=== PATIENT | male | born 1960 | race Caucasian/White ===

== ENCOUNTER 2021-06-24 20:41 | Inpatient (IN) | payer OTHER ==
[~2021-06-24] VITALS: Ht 182.9 cm; Wt 93.9 kg
[2021-06-24 20:45] VITALS: BP 84/47
[2021-06-24] MEDS ORDERED: NOREPINEPHRINE 8 MG in SODIUM CHLORIDE 0.9% 242 ML IV PRN (21:00)
[2021-06-24] MEDS ORDERED: SODIUM CHLORIDE FLUSH 10ML SYR IVF ONE (21:00)
--- NOTE | 2021-06-24 21:31 | NUR ---
BIB BY [facility] FROM [facility] AFTER FOUND HIM OBTUNDED THIS MORNING. INITIAL FSBS 20. EMS TREATED BLOOD SUGAR WITH D50. ON ARRIVAL TO HOSPITAL PATIENT FOUND TO BE COVID POSITIVE. QUESTIONED PATIENT HAS BEEN WITH COUGH/N.V X 12 DAYS. HOWEVER HE HAS STILL BEEN TAKING HIS METFORMIN ABG OF 6.7 IT WAS THEORIZED HE ACCIDENTILLY OVERDOSED ON HIS METFORMIN D/T COVID DEHYDRATION. HE MENTAL STATUS DID NOT IMPROVE WITH FLUIDS/TREATMENT OF HYPOGLYCEMIA SO PATIENT WAS INTUBATED. PATIENT RECEIVED 4L OF NS AND 5 AMPS OF BICARB INITAL TEMP WAS 88 DEGREES, K 5.6, CR 11 CULTURED THEN TREATED WITH ZOSYN, VANCOMYCIN AND CASPOFUNGIN. TRANSFERRED HERE FOR CRITICAL CARE ON ARRIVAL OBTUNDED, NO GAG OR CORNEAL REFLEX NOTED. PUPILS 4 BUT WITH [place] RESPONSE ON ARRIVAL TRANSFERRED TO [facility], ECG OBTAINED, PLACED ON CARDIAC RESPONSE TEMP OF 93, 96, 97/66, ETCO2 OF 20, 93% ON 50% FIO2. REPEAT FSBS 334
[2021-06-24] MEDS: SODIUM BICARBONATE 8.4% 150 MEQ in DEXTROSE 5% 1,000 ML IV SCH (21:49)
[2021-06-24 22:00] VITALS: BP 110/58
[2021-06-24] MEDS: SODIUM CHLORIDE FLUSH 10ML SYR IVF SCH (22:00)
[2021-06-24] MEDS ORDERED: LIDOCAINE-MPF 1%, 2ML ENDO PRN (22:00)
[2021-06-24] MEDS ORDERED: GLUCAGON 1 MG IM PRN ×2 (22:00→23:30)
[2021-06-24] MEDS ORDERED: PHARMACY MAY ADJ FOR RENAL FX MC SCH (22:00)
[2021-06-24 22:17] LABS: PLATELET (DIC) 645 x10^3/uL (130-400)
[2021-06-24 22:19] LABS: MEAN CORPUSCULAR HEMOGLOBIN 32.1 pg (27.5-34.5); MEAN CORPUSCULAR HGB CONC 31.5 g/dL (33.2-36.2); MEAN PLATELET VOLUME 7.7 fL (7.4-10.4); PLATELET COUNT 643 x10^3/uL (130-400); RED BLOOD COUNT 4.25 x10^6/uL (4.38-5.82)
[2021-06-24 22:27] LABS: ACETONE, SERUM Moderate(40mg/dL) (Negative)
[2021-06-24] MEDS ORDERED: PROPOFOL 100 ML IV ONE (22:27)
[2021-06-24 22:35] LABS: ALANINE AMINOTRANSFERASE 47 U/L (12-78); ALBUMIN 1.9 g/dL (3.4-5.0); ANION GAP 36 mmol/L (5-15); BAND#(MANUAL) 2.05 x10^3/uL; BANDS%(MANUAL) 7 % (0-7); CALCIUM 8.5 mg/dL (8.5-10.1); CHLORIDE 82 mmol/L (98-107); CREATININE 9.57 mg/dL (0.7-1.3); LYMPH#(MANUAL) 1.17 x10^3/uL (1-3.4); LYMPHS% (MANUAL) 4 % (22-44); METAMYELOCYTES# (MANUAL) 0.29 x10^3/uL (0-0); METAMYELOCYTES% (MANUAL) 1 % (0-1); MONOS#(MANUAL) 1.47 x10^3/uL (0.3-2.7); MONOS% (MANUAL) 5 % (2-9); SEG#(MANUAL) 24.32 x10^3/uL (1.8-6.8); SEGS% (MANUAL) 83 % (42-75)
[2021-06-24 22:36] LABS: <PLATELET ESTIMATE> INCREASED; <PLT MORPHOLOGY> NORMAL PLT MORPH; <RBC MORPHOLOGY> NORMAL
[2021-06-24 22:45] LABS: ALKALINE PHOSPHATASE 116 U/L (45-117); BILIRUBIN,TOTAL 0.4 mg/dL (0.2-1.0); FREE T4 (FREE THYROXINE) 1.12 ng/dL (0.76-1.46); TOTAL PROTEIN 6.1 g/dL (6.4-8.2); TRIGLYCERIDES 181 mg/dL (50-200)
[2021-06-24 22:52] LABS: TROPONIN I 0.232 ng/mL (0.000-0.045)
[2021-06-24 22:57] LABS: FIBRINOGEN 445 mg/dL (200-340); PROTIME 14.2 Seconds (9.6-11.5); PTT 64 Seconds (25-31)
[2021-06-24 23:00] VITALS: BP_SYST 89; BP_SYST 99; BP_DIAS 51; BP_DIAS 52
[2021-06-24 23:15] LABS: D-DIMER (DIC) > 35.00 ug/mlFEU (0.00-0.52)
[2021-06-24] MEDS ORDERED: PHARMACY MAY ADJ FOR RENAL FX MC PRN (23:30)
[2021-06-24] MEDS ORDERED: DEXTROSE 4 GM TAB.CHEW PO PRN (23:30)
[2021-06-24] MEDS ORDERED: CALCIUM CHLORIDE 10%, 10ML SYR IVPush ONE (23:30)
[2021-06-24] MEDS ORDERED: DEXTROSE 50%, 50ML SYRINGE IVPush PRN (23:30)
[2021-06-24] MEDS ORDERED: ACETAMINOPHEN 650 MG SUPP PR PRN (23:30)
[2021-06-24 23:39] LABS: SALICYLATE LEVEL 2.5 mg/dL (2.8-20.0)
[2021-06-25] VITALS (70 sets, daily range): BP systolic 85–165; BP diastolic 35–107
[2021-06-25] MEDS: SODIUM BICARBONATE 8.4% 150 MEQ in DEXTROSE 5% 1,000 ML IV SCH ×7 (00:17→18:50)
[2021-06-25] MEDS: NOREPINEPHRINE 8 MG in SODIUM CHLORIDE 0.9% 242 ML IV PRN ×2 (00:18→00:40)
[2021-06-25] MEDS ORDERED: DEXAMETHASONE 4 MG/ML, 1ML ONE (02:47)
[2021-06-25] MEDS: DEXAMETHASONE 4 MG/ML, 1ML IVPush SCH (02:51)
[2021-06-25] MEDS: PIPERACILLIN/TAZO 3.375 GM in DEXTROSE 5% 50 ML IV SCH ×4 (02:58→20:32)
[2021-06-25] MEDS: NOREPINEPHRINE 32 MG in SODIUM CHLORIDE 0.9% 218 ML IV PRN ×3 (03:13→15:01)
[2021-06-25] MEDS ORDERED: ALBUMIN HUMAN 25% 100 ML IV ONE (03:30)
[2021-06-25] MEDS: VASOPRESSIN 20 UNIT in SODIUM CHLORIDE 0.9% 99 ML IV PRN ×3 (03:32→15:00)
[2021-06-25] MEDS: PROPOFOL 100 ML IV PRN ×8 (03:50→22:45)
[2021-06-25] MEDS ORDERED: FENTANYL PF 100 MCG/2ML ONE ×3 (04:15→05:24)
[2021-06-25] MEDS: FENTANYL PF 100 MCG/2ML IVPush PRN ×3 (04:17→05:38)
[2021-06-25] MEDS ORDERED: SIMV20TA19 PO (04:55)
[2021-06-25] MEDS ORDERED: GLIM4TAB8 PO (04:58)
[2021-06-25] MEDS ORDERED: METF-688 PO (04:59)
[2021-06-25] MEDS ORDERED: LISI20TA21 PO (05:00)
[2021-06-25] MEDS ORDERED: THYR25PO PO (05:02)
[2021-06-25] MEDS ORDERED: NAPR500T8 PO (05:06)
[2021-06-25] MEDS ORDERED: ASPI81TA45 PO (05:06)
[2021-06-25] MEDS ORDERED: MIDAZOLAM 1 MG/ML, 2ML IVPush ONE (05:30)
[2021-06-25] MEDS ORDERED: MIDAZOLAM 1 MG/ML, 2ML ONE (05:33)
[2021-06-25] MEDS ORDERED: MIDAZOLAM HCL 50 MG in SODIUM CHLORIDE 0.9% 40 ML IV PRN (06:00)
[2021-06-25] MEDS: MIDAZOLAM HCL 50 MG in SODIUM CHLORIDE 0.9% 40 ML IV PRN ×3 (06:28→22:55)
[2021-06-25] MEDS: PANTOPRAZOLE 40 MG IV IVPush SCH ×2 (06:40→17:39)
[2021-06-25] MEDS ORDERED: PANTOPRAZOLE 40 MG IV ONE ×2 (06:40→17:31)
[2021-06-25] MEDS ORDERED: PROPOFOL 100 ML IV ONE ×6 (06:40→22:40)
[2021-06-25 07:02] LABS: MEAN CORPUSCULAR HEMOGLOBIN 32.1 pg (27.5-34.5); MEAN CORPUSCULAR HGB CONC 33.6 g/dL (33.2-36.2); MEAN PLATELET VOLUME 7.7 fL (7.4-10.4); PLATELET COUNT 406 x10^3/uL (130-400); RED BLOOD COUNT 3.63 x10^6/uL (4.38-5.82); RED CELL DISTRIBUTION WIDTH 12.4 % (9.4-14.8)
[2021-06-25 07:17] LABS: ALANINE AMINOTRANSFERASE 55 U/L (12-78); ALBUMIN 2.1 g/dL (3.4-5.0); ANION GAP 29 mmol/L (5-15); CALCIUM 7.8 mg/dL (8.5-10.1); CHLORIDE 90 mmol/L (98-107)
[2021-06-25 07:22] LABS: ALKALINE PHOSPHATASE 84 U/L (45-117); BILIRUBIN,TOTAL 0.6 mg/dL (0.2-1.0); TOTAL PROTEIN 5.4 g/dL (6.4-8.2)
[2021-06-25 07:28] LABS: INTERNATIONAL NORMALIZED RATIO 1.38 (0.93-1.1); PROTHROMBIN TIME 14.5 Seconds (9.6-11.5)
[2021-06-25 07:30] LABS: TROPONIN I 0.276 ng/mL (0.000-0.045)
[2021-06-25] MEDS ORDERED: INSULIN GLARGINE 100 UNITS/ML, PEN SQ-INSULIN SCH ×2 (08:00→20:00)
[2021-06-25 08:11] LABS: BAND#(MANUAL) 0.67 x10^3/uL; BANDS%(MANUAL) 2 % (0-7); LYMPH#(MANUAL) 0.67 x10^3/uL (1-3.4); LYMPHS% (MANUAL) 2 % (22-44); METAMYELOCYTES# (MANUAL) 0.34 x10^3/uL (0-0); METAMYELOCYTES% (MANUAL) 1 % (0-1); MONOS#(MANUAL) 1.34 x10^3/uL (0.3-2.7); MONOS% (MANUAL) 4 % (2-9); SEG#(MANUAL) 30.58 x10^3/uL (1.8-6.8); SEGS% (MANUAL) 91 % (42-75)
[2021-06-25 08:12] LABS: <PLATELET ESTIMATE> INCREASED; <PLT MORPHOLOGY> NORMAL PLT MORPH; POLYCHROMASIA 1+; SMUDGE CELLS 1+
[2021-06-25] MEDS ORDERED: INSULIN LISPRO SINGLE DOSE, ER SQ-INSULIN ONE (08:53)
[2021-06-25] MEDS: INSULIN LISPRO 100 UNITS/ML, PEN SQ-INSULIN SCH ×4 (08:55→21:51)
[2021-06-25] MEDS: SODIUM CHLORIDE FLUSH 10ML SYR IVF SCH ×4 (09:00→21:45)
[2021-06-25] MEDS ORDERED: FAMOTIDINE 20 MG/2 ML IVPush SCH (09:00)
[2021-06-25 13:16] LABS: ANION GAP 38 mmol/L (5-15); CALCIUM 7.2 mg/dL (8.5-10.1); CHLORIDE 85 mmol/L (98-107); CREATININE 6.28 mg/dL (0.7-1.3)
[2021-06-25] MEDS: ALBUMIN HUMAN 25% 100 ML IV PRN (17:38)
--- NOTE | 2021-06-25 19:05 | NUR ---
RECEIVED REPORT FROM KAYCE REDMOND. PT. CURRENTLY RECEIVING DIALYSIS.
[2021-06-26] VITALS: BP 129/66
[2021-06-26 00:15] VITALS: BP 123/59
[2021-06-26 00:30] VITALS: BP 127/65
[2021-06-26 00:45] VITALS: BP 123/62
[2021-06-26 01:00] VITALS: BP 108/59
[2021-06-26] MEDS ORDERED: HEPARIN 5,000 UNITS/ML, 1ML IV ONE (01:00)
[2021-06-26 01:15] VITALS: BP 89/49
[2021-06-26] MEDS: INSULIN LISPRO 100 UNITS/ML, PEN SQ-INSULIN SCH ×5 (01:45→19:45)
[2021-06-26] MEDS: PIPERACILLIN/TAZO 3.375 GM in DEXTROSE 5% 50 ML IV SCH ×4 (01:54→14:32)
[2021-06-26] MEDS: HEPARIN 25,000 UNITS/250ML PMX 250 ML IV PRN (02:22)
[2021-06-26] MEDS: PROPOFOL 100 ML IV PRN ×5 (02:40→20:26)
[2021-06-26] MEDS: MIDAZOLAM HCL 50 MG in SODIUM CHLORIDE 0.9% 40 ML IV PRN ×2 (04:15→10:22)
[2021-06-26] MEDS: NOREPINEPHRINE 32 MG in SODIUM CHLORIDE 0.9% 218 ML IV PRN ×3 (04:16→20:28)
[2021-06-26 05:12] LABS: BASOPHILS % (AUTO) 0 % (0-1); EOSINOPHILS % (AUTO) 0 % (1-7); LYMPHOCYTES % (AUTO) 10 % (22-44); MEAN CORPUSCULAR HEMOGLOBIN 31.7 pg (27.5-34.5); MEAN CORPUSCULAR HGB CONC 34.8 g/dL (33.2-36.2); MONOCYTES % (AUTO) 5 % (2-9); NEUTROPHILS % (AUTO) 86 % (42-75); PLATELET COUNT 257 x10^3/uL (130-400); RED BLOOD COUNT 3.14 x10^6/uL (4.38-5.82); RED CELL DISTRIBUTION WIDTH 12.2 % (9.4-14.8)
[2021-06-26 05:23] LABS: ALANINE AMINOTRANSFERASE 44 U/L (12-78); ANION GAP 13 mmol/L (5-15); CALCIUM 6.7 mg/dL (8.5-10.1); CHLORIDE 90 mmol/L (98-107)
[2021-06-26 05:27] LABS: ALKALINE PHOSPHATASE 64 U/L (45-117); BILIRUBIN,TOTAL 0.8 mg/dL (0.2-1.0); TOTAL PROTEIN 4.7 g/dL (6.4-8.2)
[2021-06-26] MEDS: PANTOPRAZOLE 40 MG IV IVPush SCH ×2 (06:01→17:39)
[2021-06-26] MEDS: SODIUM BICARBONATE 8.4% 150 MEQ in DEXTROSE 5% 1,000 ML IV SCH (06:22)
[2021-06-26] MEDS ORDERED: REMDESIVIR 200 MG in SODIUM CHLORIDE 0.9% 250 ML IVPB ONE (08:00)
[2021-06-26] MEDS: ASCORBIC ACID 500 MG TABLET PO SCH ×2 (08:30→17:36)
[2021-06-26] MEDS ORDERED: AZITHROMYCIN 500 MG TABLET ONE (08:37)
[2021-06-26] MEDS: SODIUM CHLORIDE FLUSH 10ML SYR IVF SCH ×4 (09:00→20:23)
[2021-06-26] MEDS: INSULIN GLARGINE 100 UNITS/ML, PEN SQ-INSULIN SCH ×2 (10:00→20:20)
[2021-06-26] MEDS: DEXAMETHASONE 4 MG/ML, 1ML IVPush SCH (10:17)
[2021-06-26] MEDS: LEVOTHYROXINE 100 MCG INJ IVPush SCH (10:18)
[2021-06-26] MEDS: THIAMINE 100MG TABLET PO SCH (10:19)
[2021-06-26] MEDS: CHOLECALCIFEROL 5,000u TAB PO SCH (10:19)
[2021-06-26] MEDS: ZINC SULFATE 220 MG CAPSULE PO SCH (10:19)
[2021-06-26] MEDS ORDERED: PHENYLEPHRINE 50 MG in SODIUM CHLORIDE 0.9% 245 ML IV PRN (15:30)
[2021-06-26] MEDS ORDERED: NOREPINEPHRINE 1 MG/ML, 4ML ONE (18:38)
[2021-06-26] MEDS: PIPERACILLIN/TAZO 2.25 GM in DEXTROSE 5% 50 ML IV SCH (20:18)
[2021-06-26] MEDS: HEPARIN 5,000 UNITS/ML, 1ML IV PRN (21:27)
[2021-06-27] MEDS: INSULIN LISPRO 100 UNITS/ML, PEN SQ-INSULIN SCH ×7 (00:20→23:38)
[2021-06-27] MEDS: MIDAZOLAM HCL 50 MG in SODIUM CHLORIDE 0.9% 40 ML IV PRN ×2 (00:22→09:08)
[2021-06-27] MEDS: PROPOFOL 100 ML IV PRN ×2 (00:47→05:33)
[2021-06-27] MEDS: PIPERACILLIN/TAZO 2.25 GM in DEXTROSE 5% 50 ML IV SCH ×3 (00:52→14:19)
[2021-06-27] MEDS: NOREPINEPHRINE 32 MG in SODIUM CHLORIDE 0.9% 218 ML IV PRN ×2 (00:53→14:15)
[2021-06-27] MEDS: PHENYLEPHRINE 100 MG in SODIUM CHLORIDE 0.9% 240 ML IV PRN ×5 (00:53→23:54)
[2021-06-27] MEDS: HEPARIN 25,000 UNITS/250ML PMX 250 ML IV PRN ×2 (02:46→23:46)
[2021-06-27 04:07] LABS: MEAN CORPUSCULAR HEMOGLOBIN 33.5 pg (27.5-34.5); MEAN CORPUSCULAR HGB CONC 36.2 g/dL (33.2-36.2); MEAN PLATELET VOLUME 7.2 fL (7.4-10.4); PLATELET COUNT 248 x10^3/uL (130-400); RED BLOOD COUNT 3.31 x10^6/uL (4.38-5.82); RED CELL DISTRIBUTION WIDTH 12.3 % (9.4-14.8)
[2021-06-27 04:20] LABS: ALANINE AMINOTRANSFERASE 48 U/L (12-78); ALBUMIN 1.7 g/dL (3.4-5.0); ANION GAP 22 mmol/L (5-15); CHLORIDE 93 mmol/L (98-107); CREATININE 4.84 mg/dL (0.7-1.3)
[2021-06-27 04:23] LABS: ALKALINE PHOSPHATASE 94 U/L (45-117); BILIRUBIN,TOTAL 0.8 mg/dL (0.2-1.0); TOTAL PROTEIN 4.8 g/dL (6.4-8.2); TRIGLYCERIDES 548 mg/dL (50-200)
[2021-06-27 04:31] LABS: CALCIUM 5.8 mg/dL (8.5-10.1)
[2021-06-27 04:40] LABS: <RBC MORPHOLOGY> NORMAL; BAND#(MANUAL) 3.09 x10^3/uL; BANDS%(MANUAL) 11 % (0-7); LYMPH#(MANUAL) 1.69 x10^3/uL (1-3.4); LYMPHS% (MANUAL) 6 % (22-44); MONOS#(MANUAL) 1.69 x10^3/uL (0.3-2.7); MONOS% (MANUAL) 6 % (2-9); SEG#(MANUAL) 21.64 x10^3/uL (1.8-6.8); SEGS% (MANUAL) 77 % (42-75)
[2021-06-27 04:41] LABS: <PLATELET ESTIMATE> ADEQUATE; <PLT MORPHOLOGY> NORMAL PLT MORPH; PMNS WITH VACUOLES 1+; SMUDGE CELLS 1+
[2021-06-27] MEDS: PANTOPRAZOLE 40 MG IV IVPush SCH ×2 (05:32→17:52)
[2021-06-27] MEDS: DEXMEDETOMIDINE 200 MCG in SODIUM CHLORIDE 0.9% 48 ML IV PRN ×3 (06:42→16:30)
[2021-06-27] MEDS ORDERED: REMDESIVIR 100 MG in SODIUM CHLORIDE 0.9% 250 ML IVPB SCH (08:00)
[2021-06-27] MEDS: THIAMINE 100MG TABLET PO SCH (08:29)
[2021-06-27] MEDS: ASCORBIC ACID 500 MG TABLET PO SCH ×2 (08:29→16:29)
[2021-06-27] MEDS: SODIUM CHLORIDE FLUSH 10ML SYR IVF SCH ×4 (08:29→19:54)
[2021-06-27] MEDS: CHOLECALCIFEROL 5,000u TAB PO SCH (08:30)
[2021-06-27] MEDS: DEXAMETHASONE 4 MG/ML, 1ML IVPush SCH (08:34)
[2021-06-27] MEDS: ZINC SULFATE 220 MG CAPSULE PO SCH (08:34)
[2021-06-27] MEDS: LEVOTHYROXINE 100 MCG INJ IVPush SCH (08:34)
[2021-06-27] MEDS: INSULIN GLARGINE 100 UNITS/ML, PEN SQ-INSULIN SCH ×2 (08:48→19:55)
[2021-06-27] MEDS: REMDESIVIR 100 MG in SODIUM CHLORIDE 0.9% 250 ML IVPB SCH (12:36)
[2021-06-27] MEDS ORDERED: CALCIUM GLUCONATE 0.46MEQ/1ML IVPush ONE (13:30)
[2021-06-27] MEDS ORDERED: CALCIUM GLUCONATE 4.6 MEQ in SODIUM CHLORIDE 0.9% 100 ML IV ONE (13:30)
[2021-06-27] MEDS ORDERED: CEFEPIME 1 GM in DEXTROSE 5% 50 ML IV SCH (15:30)
[2021-06-27] MEDS ORDERED: VANCOMYCIN PER PHARMACY MC PRN (15:30)
[2021-06-27] MEDS ORDERED: VANCOMYCIN 2,000 MG in SODIUM CHLORIDE 0.9% 500 ML IV ONE (16:30)
[2021-06-27] MEDS ORDERED: PHARMACOKINETIC CONSULTATION MC ONE (16:30)
[2021-06-27] MEDS ORDERED: PHARMACOKINETIC MONITORING MC PRN (16:30)
[2021-06-27] MEDS: CEFEPIME 1 GM in DEXTROSE 5% 50 ML IV SCH (19:51)
[2021-06-28] MEDS: INSULIN LISPRO 100 UNITS/ML, PEN SQ-INSULIN SCH ×5 (04:07→23:26)
[2021-06-28 04:22] LABS: ALANINE AMINOTRANSFERASE 43 U/L (12-78); ALBUMIN 1.6 g/dL (3.4-5.0); ANION GAP 15 mmol/L (5-15); CALCIUM 6.1 mg/dL (8.5-10.1); CHLORIDE 97 mmol/L (98-107); CREATININE 4.53 mg/dL (0.7-1.3)
[2021-06-28 04:25] LABS: ALKALINE PHOSPHATASE 255 U/L (45-117); BILIRUBIN,TOTAL 0.8 mg/dL (0.2-1.0); TOTAL PROTEIN 5.1 g/dL (6.4-8.2)
[2021-06-28 04:27] LABS: MEAN CORPUSCULAR HEMOGLOBIN 31.7 pg (27.5-34.5); MEAN CORPUSCULAR HGB CONC 34.1 g/dL (33.2-36.2); MEAN PLATELET VOLUME 7.3 fL (7.4-10.4); PLATELET COUNT 237 x10^3/uL (130-400); RED BLOOD COUNT 3.64 x10^6/uL (4.38-5.82); RED CELL DISTRIBUTION WIDTH 12.9 % (9.4-14.8)
[2021-06-28] MEDS: HEPARIN 5,000 UNITS/ML, 1ML IV PRN (04:47)
[2021-06-28] MEDS: PANTOPRAZOLE 40 MG IV IVPush SCH ×2 (04:51→16:25)
[2021-06-28] MEDS: FENTANYL PF 100 MCG/2ML IVPush PRN (04:52)
[2021-06-28] MEDS: DEXMEDETOMIDINE 200 MCG in SODIUM CHLORIDE 0.9% 48 ML IV PRN ×3 (05:04→21:49)
[2021-06-28] MEDS: PHENYLEPHRINE 100 MG in SODIUM CHLORIDE 0.9% 240 ML IV PRN ×4 (05:04→21:49)
[2021-06-28 05:43] LABS: BAND#(MANUAL) 0.24 x10^3/uL; BANDS%(MANUAL) 1 % (0-7); LYMPH#(MANUAL) 3.07 x10^3/uL (1-3.4); LYMPHS% (MANUAL) 13 % (22-44); MONOS#(MANUAL) 0.24 x10^3/uL (0.3-2.7); MONOS% (MANUAL) 1 % (2-9); SEG#(MANUAL) 20.06 x10^3/uL (1.8-6.8); SEGS% (MANUAL) 85 % (42-75)
[2021-06-28 05:44] LABS: <PLATELET ESTIMATE> ADEQUATE; <PLT MORPHOLOGY> NORMAL PLT MORPH; <RBC MORPHOLOGY> NORMAL
[2021-06-28] MEDS: MIDAZOLAM HCL 50 MG in SODIUM CHLORIDE 0.9% 40 ML IV PRN (06:36)
[2021-06-28] MEDS: INSULIN GLARGINE 100 UNITS/ML, PEN SQ-INSULIN SCH ×2 (08:00→23:27)
[2021-06-28] MEDS: ARTIFICIAL TEARS OINT 3.5 GM EACHEYE SCH ×3 (09:00→21:49)
[2021-06-28] MEDS: THIAMINE 100MG TABLET PO SCH (09:01)
[2021-06-28] MEDS: SODIUM CHLORIDE FLUSH 10ML SYR IVF SCH ×4 (09:01→20:08)
[2021-06-28] MEDS: ASCORBIC ACID 500 MG TABLET PO SCH ×2 (09:01→16:25)
[2021-06-28] MEDS: CHOLECALCIFEROL 5,000u TAB PO SCH (09:02)
[2021-06-28] MEDS: LEVOTHYROXINE 100 MCG INJ IVPush SCH (09:02)
[2021-06-28] MEDS: DEXAMETHASONE 4 MG/ML, 1ML IVPush SCH (09:02)
[2021-06-28] MEDS: ZINC SULFATE 220 MG CAPSULE PO SCH (09:02)
[2021-06-28] MEDS: NOREPINEPHRINE 32 MG in SODIUM CHLORIDE 0.9% 218 ML IV PRN (09:04)
[2021-06-28] MEDS: REMDESIVIR 100 MG in SODIUM CHLORIDE 0.9% 250 ML IVPB SCH (11:54)
[2021-06-28] MEDS: CEFEPIME 1 GM in DEXTROSE 5% 50 ML IV SCH (20:08)
[2021-06-28] MEDS: HEPARIN 25,000 UNITS/250ML PMX 250 ML IV PRN (21:08)
[2021-06-29] MEDS: DEXMEDETOMIDINE 1,000 MCG in SODIUM CHLORIDE 0.9% 240 ML IV PRN ×2 (00:26→11:51)
[2021-06-29] MEDS: MIDAZOLAM HCL 50 MG in SODIUM CHLORIDE 0.9% 40 ML IV PRN (01:34)
[2021-06-29] MEDS: FENTANYL PF 100 MCG/2ML IVPush PRN ×2 (02:06→05:58)
[2021-06-29] MEDS: PHENYLEPHRINE 100 MG in SODIUM CHLORIDE 0.9% 240 ML IV PRN ×6 (02:47→23:31)
[2021-06-29] MEDS: ARTIFICIAL TEARS OINT 3.5 GM EACHEYE SCH ×4 (04:26→22:21)
[2021-06-29] MEDS: INSULIN LISPRO 100 UNITS/ML, PEN SQ-INSULIN SCH ×4 (04:32→22:26)
[2021-06-29 04:52] LABS: MEAN CORPUSCULAR HEMOGLOBIN 31.4 pg (27.5-34.5); MEAN CORPUSCULAR HGB CONC 33.9 g/dL (33.2-36.2); MEAN PLATELET VOLUME 7.2 fL (7.4-10.4); PLATELET COUNT 224 x10^3/uL (130-400); RED BLOOD COUNT 3.91 x10^6/uL (4.38-5.82)
[2021-06-29 05:06] LABS: CHLORIDE 98 mmol/L (98-107)
[2021-06-29 05:17] LABS: ALANINE AMINOTRANSFERASE 39 U/L (12-78); ALBUMIN 1.4 g/dL (3.4-5.0); ALKALINE PHOSPHATASE 344 U/L (45-117); ANION GAP 16 mmol/L (5-15); BILIRUBIN,TOTAL 0.7 mg/dL (0.2-1.0); CREATININE 5.42 mg/dL (0.7-1.3); TOTAL PROTEIN 5.4 g/dL (6.4-8.2); VANCOMYCIN,RANDOM 22.3 mcg/mL
[2021-06-29 05:18] LABS: CALCIUM 5.9 mg/dL (8.5-10.1)
[2021-06-29 05:47] LABS: BANDS%(MANUAL) 5 % (0-7); LYMPHS% (MANUAL) 4 % (22-44); MONOS% (MANUAL) 2 % (2-9); SEGS% (MANUAL) 89 % (42-75)
[2021-06-29 05:48] LABS: <PLATELET ESTIMATE> ADEQUATE; <PLT MORPHOLOGY> NORMAL PLT MORPH; <RBC MORPHOLOGY> NORMAL
[2021-06-29] MEDS: PANTOPRAZOLE 40 MG IV IVPush SCH ×2 (05:58→17:47)
[2021-06-29] MEDS: INSULIN GLARGINE 100 UNITS/ML, PEN SQ-INSULIN SCH ×2 (07:36→22:26)
[2021-06-29] MEDS: DEXAMETHASONE 4 MG/ML, 1ML IVPush SCH (08:46)
[2021-06-29] MEDS: THIAMINE 100MG TABLET PO SCH (08:46)
[2021-06-29] MEDS: CHOLECALCIFEROL 5,000u TAB PO SCH (08:47)
[2021-06-29] MEDS: ASCORBIC ACID 500 MG TABLET PO SCH ×2 (08:47→17:47)
[2021-06-29] MEDS: LEVOTHYROXINE 100 MCG INJ IVPush SCH (08:47)
[2021-06-29] MEDS: ZINC SULFATE 220 MG CAPSULE PO SCH (08:47)
[2021-06-29] MEDS: SODIUM CHLORIDE FLUSH 10ML SYR IVF SCH ×4 (08:52→19:58)
[2021-06-29] MEDS: MEROPENEM 1 GM in SODIUM CHLORIDE 0.9% 100 ML IV SCH ×2 (10:27→22:21)
[2021-06-29] MEDS ORDERED: CALCIUM GLUCONATE 4.6 MEQ/10 ML IVPush ONE (10:30)
[2021-06-29] MEDS: FENTANYL PF 1,000 MCG in SODIUM CHLORIDE 0.9% 80 ML IV PRN (11:40)
[2021-06-29] MEDS ORDERED: CALCIUM GLUCONATE 4.6 MEQ in SODIUM CHLORIDE 0.9% 100 ML IV ONE (12:00)
[2021-06-29] MEDS: REMDESIVIR 100 MG in SODIUM CHLORIDE 0.9% 250 ML IVPB SCH (12:06)
[2021-06-29] MEDS: HEPARIN 25,000 UNITS/250ML PMX 250 ML IV PRN (16:18)
[2021-06-29] MEDS ORDERED: VANCOMYCIN 1,800 MG in SODIUM CHLORIDE 0.9% 250 ML IV ONE (18:00)
[2021-06-30 04:24] LABS: MEAN CORPUSCULAR HEMOGLOBIN 31.6 pg (27.5-34.5); MEAN PLATELET VOLUME 7.4 fL (7.4-10.4); PLATELET COUNT 155 x10^3/uL (130-400); RED BLOOD COUNT 3.82 x10^6/uL (4.38-5.82); RED CELL DISTRIBUTION WIDTH 13.1 % (9.4-14.8)
[2021-06-30 04:30] LABS: ALANINE AMINOTRANSFERASE 37 U/L (12-78); ALBUMIN 1.1 g/dL (3.4-5.0); ANION GAP 12 mmol/L (5-15); CHLORIDE 101 mmol/L (98-107); CREATININE 4.59 mg/dL (0.7-1.3)
[2021-06-30 04:33] LABS: ALKALINE PHOSPHATASE 360 U/L (45-117); BILIRUBIN,TOTAL 0.6 mg/dL (0.2-1.0); TOTAL PROTEIN 5.1 g/dL (6.4-8.2); TRIGLYCERIDES 107 mg/dL (50-200)
[2021-06-30 05:21] LABS: BAND#(MANUAL) 2.46 x10^3/uL; BANDS%(MANUAL) 10 % (0-7); LYMPH#(MANUAL) 0.25 x10^3/uL (1-3.4); LYMPHS% (MANUAL) 1 % (22-44); MONOS#(MANUAL) 0.49 x10^3/uL (0.3-2.7); MONOS% (MANUAL) 2 % (2-9); SEGS% (MANUAL) 87 % (42-75)
[2021-06-30 05:22] LABS: <PLATELET ESTIMATE> ADEQUATE; <PLT MORPHOLOGY> NORMAL PLT MORPH; <RBC MORPHOLOGY> NORMAL
[2021-06-30] MEDS: PHENYLEPHRINE 100 MG in SODIUM CHLORIDE 0.9% 240 ML IV PRN ×3 (05:23→21:49)
[2021-06-30] MEDS: INSULIN LISPRO 100 UNITS/ML, PEN SQ-INSULIN SCH ×4 (05:24→22:23)
[2021-06-30] MEDS: ARTIFICIAL TEARS OINT 3.5 GM EACHEYE SCH ×4 (05:24→21:50)
[2021-06-30] MEDS: PANTOPRAZOLE 40 MG IV IVPush SCH ×2 (06:24→17:28)
[2021-06-30] MEDS ORDERED: CALCIUM CHLORIDE 13.6 MEQ in SODIUM CHLORIDE 0.9% 100 ML IV ONE (06:30)
[2021-06-30] MEDS: INSULIN GLARGINE 100 UNITS/ML, PEN SQ-INSULIN SCH ×2 (08:00→20:18)
[2021-06-30] MEDS: LEVOTHYROXINE 100 MCG INJ IVPush SCH (08:48)
[2021-06-30] MEDS: ZINC SULFATE 220 MG CAPSULE PO SCH (08:49)
[2021-06-30] MEDS: THIAMINE 100MG TABLET PO SCH (08:49)
[2021-06-30] MEDS: CHOLECALCIFEROL 5,000u TAB PO SCH (08:49)
[2021-06-30] MEDS: ASCORBIC ACID 500 MG TABLET PO SCH ×2 (08:49→17:00)
[2021-06-30] MEDS: DEXAMETHASONE 4 MG/ML, 1ML IVPush SCH (08:49)
[2021-06-30] MEDS: SODIUM CHLORIDE FLUSH 10ML SYR IVF SCH ×4 (08:50→20:20)
[2021-06-30] MEDS ORDERED: CALCIUM GLUCONATE 4.6 MEQ/10 ML IVPush ONE (09:00)
[2021-06-30] MEDS: MEROPENEM 1 GM in SODIUM CHLORIDE 0.9% 100 ML IV SCH ×2 (09:02→21:49)
[2021-06-30] MEDS: DEXMEDETOMIDINE 1,000 MCG in SODIUM CHLORIDE 0.9% 240 ML IV PRN (09:03)
[2021-06-30] MEDS: FENTANYL PF 1,000 MCG in SODIUM CHLORIDE 0.9% 80 ML IV PRN (09:03)
[2021-06-30] MEDS: CALCITRIOL 0.25 MCG CAPSULE PO SCH (11:35)
[2021-06-30] MEDS: REMDESIVIR 100 MG in SODIUM CHLORIDE 0.9% 250 ML IVPB SCH (11:49)
[2021-06-30] MEDS: LINEZOLID PMX 600MG/300ML 300 ML IV SCH (14:42)
[2021-07-01] MEDS: LINEZOLID PMX 600MG/300ML 300 ML IV SCH ×2 (02:02→13:19)
[2021-07-01] MEDS: HEPARIN 25,000 UNITS/250ML PMX 250 ML IV PRN ×2 (03:23→22:17)
[2021-07-01 04:22] LABS: MEAN CORPUSCULAR HEMOGLOBIN 31.4 pg (27.5-34.5); MEAN CORPUSCULAR HGB CONC 33.7 g/dL (33.2-36.2); MEAN PLATELET VOLUME 7.8 fL (7.4-10.4); PLATELET COUNT 160 x10^3/uL (130-400); RED BLOOD COUNT 4.12 x10^6/uL (4.38-5.82); RED CELL DISTRIBUTION WIDTH 13.5 % (9.4-14.8)
[2021-07-01 04:34] LABS: ANION GAP 14 mmol/L (5-15); CALCIUM 6.4 mg/dL (8.5-10.1); CHLORIDE 102 mmol/L (98-107); CREATININE 4.58 mg/dL (0.7-1.3)
[2021-07-01 05:05] LABS: BAND#(MANUAL) 0.98 x10^3/uL; BANDS%(MANUAL) 5 % (0-7); LYMPHS% (MANUAL) 1 % (22-44); MONOS#(MANUAL) 1.18 x10^3/uL (0.3-2.7); MONOS% (MANUAL) 6 % (2-9); SEG#(MANUAL) 17.25 x10^3/uL (1.8-6.8); SEGS% (MANUAL) 88 % (42-75)
[2021-07-01 05:06] LABS: <PLATELET ESTIMATE> ADEQUATE; <PLT MORPHOLOGY> NORMAL PLT MORPH; <RBC MORPHOLOGY> NORMAL
[2021-07-01] MEDS: PANTOPRAZOLE 40 MG IV IVPush SCH ×2 (06:02→17:38)
[2021-07-01] MEDS: ARTIFICIAL TEARS OINT 3.5 GM EACHEYE SCH ×4 (06:02→21:45)
[2021-07-01] MEDS: INSULIN LISPRO 100 UNITS/ML, PEN SQ-INSULIN SCH ×4 (06:02→20:06)
[2021-07-01] MEDS ORDERED: CALCIUM GLUCONATE 9.2 MEQ in SODIUM CHLORIDE 0.9% 100 ML IV ONE (06:30)
[2021-07-01] MEDS: ALBUMIN HUMAN 25% 100 ML IV PRN ×2 (08:33→09:27)
[2021-07-01] MEDS: CHOLECALCIFEROL 5,000u TAB PO SCH (08:37)
[2021-07-01] MEDS: DEXAMETHASONE 4 MG/ML, 1ML IVPush SCH (08:37)
[2021-07-01] MEDS: SODIUM CHLORIDE FLUSH 10ML SYR IVF SCH ×2 (08:37→20:06)
[2021-07-01] MEDS: CALCITRIOL 0.25 MCG CAPSULE PO SCH (08:37)
[2021-07-01] MEDS: LEVOTHYROXINE 100 MCG INJ IVPush SCH (08:37)
[2021-07-01] MEDS: THIAMINE 100MG TABLET PO SCH (08:37)
[2021-07-01] MEDS: ZINC SULFATE 220 MG CAPSULE PO SCH (08:38)
[2021-07-01] MEDS: ASCORBIC ACID 500 MG TABLET PO SCH ×2 (08:38→17:38)
[2021-07-01] MEDS: INSULIN GLARGINE 100 UNITS/ML, PEN SQ-INSULIN SCH ×2 (08:39→20:07)
[2021-07-01] MEDS: PHENYLEPHRINE 100 MG in SODIUM CHLORIDE 0.9% 240 ML IV PRN (10:43)
[2021-07-01] MEDS: MEROPENEM 1 GM in SODIUM CHLORIDE 0.9% 100 ML IV SCH ×2 (11:34→21:44)
[2021-07-01] MEDS: NOREPINEPHRINE 32 MG in SODIUM CHLORIDE 0.9% 218 ML IV PRN (19:42)
[2021-07-02] MEDS: LINEZOLID PMX 600MG/300ML 300 ML IV SCH (01:32)
[2021-07-02] MEDS: DEXMEDETOMIDINE 1,000 MCG in SODIUM CHLORIDE 0.9% 240 ML IV PRN (01:32)
[2021-07-02] MEDS: ARTIFICIAL TEARS OINT 3.5 GM EACHEYE SCH ×4 (03:11→23:00)
[2021-07-02] MEDS: INSULIN LISPRO 100 UNITS/ML, PEN SQ-INSULIN SCH ×4 (03:11→20:20)
[2021-07-02 03:29] LABS: BASOPHILS % (AUTO) 0 % (0-1); EOSINOPHILS % (AUTO) 0 % (1-7); LYMPHOCYTES % (AUTO) 6 % (22-44); MEAN CORPUSCULAR HEMOGLOBIN 31.8 pg (27.5-34.5); MEAN CORPUSCULAR HGB CONC 33.9 g/dL (33.2-36.2); MEAN PLATELET VOLUME 8.1 fL (7.4-10.4); MONOCYTES % (AUTO) 8 % (2-9); NEUTROPHILS % (AUTO) 86 % (42-75); PLATELET COUNT 105 x10^3/uL (130-400); RED BLOOD COUNT 3.47 x10^6/uL (4.38-5.82); RED CELL DISTRIBUTION WIDTH 13.4 % (9.4-14.8)
[2021-07-02 03:34] LABS: ANION GAP 9 mmol/L (5-15); CALCIUM 6.7 mg/dL (8.5-10.1); CHLORIDE 105 mmol/L (98-107); CREATININE 3.06 mg/dL (0.7-1.3)
[2021-07-02] MEDS: PANTOPRAZOLE 40 MG IV IVPush SCH ×2 (05:31→17:53)
[2021-07-02] MEDS ORDERED: CALCIUM GLUCONATE 9.2 MEQ in SODIUM CHLORIDE 0.9% 100 ML IV ONE (06:30)
[2021-07-02] MEDS ORDERED: POTASSIUM CHLORIDE 10% 20 MEQ/15 ML UDC PO ONE (06:30)
[2021-07-02] MEDS: INSULIN GLARGINE 100 UNITS/ML, PEN SQ-INSULIN SCH ×2 (08:00→20:19)
[2021-07-02] MEDS: CHOLECALCIFEROL 5,000u TAB PO SCH (08:34)
[2021-07-02] MEDS: CALCITRIOL 0.25 MCG CAPSULE PO SCH (08:34)
[2021-07-02] MEDS: ASCORBIC ACID 500 MG TABLET PO SCH ×2 (08:34→17:36)
[2021-07-02] MEDS: THIAMINE 100MG TABLET PO SCH (08:34)
[2021-07-02] MEDS: SODIUM CHLORIDE FLUSH 10ML SYR IVF SCH ×2 (08:35→20:35)
[2021-07-02] MEDS: LEVOTHYROXINE 100 MCG INJ IVPush SCH (08:35)
[2021-07-02] MEDS: DEXAMETHASONE 4 MG/ML, 1ML IVPush SCH (08:35)
[2021-07-02] MEDS: ZINC SULFATE 220 MG CAPSULE PO SCH (08:35)
[2021-07-02] MEDS ORDERED: LACTULOSE 20 GM/30 ML UDC PO PRN (09:00)
--- NOTE | 2021-07-02 09:37 | NUR ---
TF per RD recs: Vital HP w/ end goal rate of 55 mL/hr (ON propofol); 65 mL/hr (OFF propofol). Addendum: 07/02/21 at [address] Amended: Links added.
[2021-07-02] MEDS: DOCUSATE 50 MG/5 ML, 10ML UDC PO SCH (10:42)
[2021-07-02] MEDS: MEROPENEM 1 GM in SODIUM CHLORIDE 0.9% 100 ML IV SCH ×2 (10:42→22:30)
[2021-07-02] MEDS ORDERED: ARGATROBAN 250 MG in SODIUM CHLORIDE 0.9% 247.5 ML IV PRN (12:00)
[2021-07-02] MEDS: ARGATROBAN/NACL 50 MG/50 ML 50 ML IV SCH ×2 (14:35→20:32)
[2021-07-02] MEDS: SENNA 176 MG/5 ML ORAL SOL NG SCH (20:36)
[2021-07-02] MEDS ORDERED: BISACODYL 10 MG SUPP PR PRN (21:00)
[2021-07-02 22:59] LABS: ANION GAP 11 mmol/L (5-15); CALCIUM 7.4 mg/dL (8.5-10.1); CHLORIDE 109 mmol/L (98-107); CREATININE 2.79 mg/dL (0.7-1.3)
[2021-07-03 03:37] LABS: MEAN CORPUSCULAR HEMOGLOBIN 31.7 pg (27.5-34.5); MEAN CORPUSCULAR HGB CONC 33.9 g/dL (33.2-36.2); MEAN PLATELET VOLUME 8.9 fL (7.4-10.4); PLATELET COUNT 110 x10^3/uL (130-400); RED BLOOD COUNT 3.66 x10^6/uL (4.38-5.82); RED CELL DISTRIBUTION WIDTH 13.6 % (9.4-14.8)
[2021-07-03 03:49] LABS: ALANINE AMINOTRANSFERASE 28 U/L (12-78); ALBUMIN 1.8 g/dL (3.4-5.0); ANION GAP 12 mmol/L (5-15); CALCIUM 7.2 mg/dL (8.5-10.1); CHLORIDE 110 mmol/L (98-107); CREATININE 2.82 mg/dL (0.7-1.3)
[2021-07-03 03:52] LABS: ALKALINE PHOSPHATASE 261 U/L (45-117); BILIRUBIN,TOTAL 0.7 mg/dL (0.2-1.0); TOTAL PROTEIN 5.4 g/dL (6.4-8.2); TRIGLYCERIDES 139 mg/dL (50-200)
[2021-07-03] MEDS: INSULIN LISPRO 100 UNITS/ML, PEN SQ-INSULIN SCH ×4 (04:03→20:18)
[2021-07-03 04:05] LABS: BAND#(MANUAL) 1.57 x10^3/uL; BANDS%(MANUAL) 9 % (0-7); LYMPH#(MANUAL) 0.35 x10^3/uL (1-3.4); LYMPHS% (MANUAL) 2 % (22-44); MONOS#(MANUAL) 1.04 x10^3/uL (0.3-2.7); MONOS% (MANUAL) 6 % (2-9); POLYCHROMASIA 1+; SEG#(MANUAL) 14.44 x10^3/uL (1.8-6.8); SEGS% (MANUAL) 83 % (42-75)
[2021-07-03 04:06] LABS: <PLATELET ESTIMATE> DECREASED; <PLT MORPHOLOGY> NORMAL PLT MORPH; PMNS WITH VACUOLES 1+; TOXIC GRAN 1+
[2021-07-03] MEDS: ARTIFICIAL TEARS OINT 3.5 GM EACHEYE SCH ×4 (05:00→22:34)
[2021-07-03] MEDS: PANTOPRAZOLE 40 MG IV IVPush SCH ×2 (06:01→17:35)
[2021-07-03] MEDS: NOREPINEPHRINE 32 MG in SODIUM CHLORIDE 0.9% 218 ML IV PRN (06:19)
[2021-07-03] MEDS: THIAMINE 100MG TABLET PO SCH (09:00)
[2021-07-03] MEDS: DOCUSATE 50 MG/5 ML, 10ML UDC PO SCH (09:48)
[2021-07-03] MEDS: LEVOTHYROXINE 100 MCG INJ IVPush SCH (09:48)
[2021-07-03] MEDS: ZINC SULFATE 220 MG CAPSULE PO SCH (09:49)
[2021-07-03] MEDS: DEXAMETHASONE 4 MG/ML, 1ML IVPush SCH (09:49)
[2021-07-03] MEDS: CHOLECALCIFEROL 5,000u TAB PO SCH (09:49)
[2021-07-03] MEDS: SODIUM CHLORIDE FLUSH 10ML SYR IVF SCH ×2 (09:49→20:19)
[2021-07-03] MEDS: CALCITRIOL 0.25 MCG CAPSULE PO SCH (09:49)
[2021-07-03] MEDS: ASCORBIC ACID 500 MG TABLET PO SCH ×2 (09:49→17:35)
[2021-07-03] MEDS: PHENYLEPHRINE 100 MG in SODIUM CHLORIDE 0.9% 240 ML IV PRN (09:50)
[2021-07-03] MEDS: INSULIN GLARGINE 100 UNITS/ML, PEN SQ-INSULIN SCH ×2 (10:20→22:33)
[2021-07-03] MEDS: MEROPENEM 1 GM in SODIUM CHLORIDE 0.9% 100 ML IV SCH ×2 (11:39→22:28)
[2021-07-03] MEDS: ARGATROBAN/NACL 50 MG/50 ML 50 ML IV SCH (12:30)
[2021-07-03] MEDS: ALBUMIN HUMAN 25% 100 ML IV PRN (16:21)
[2021-07-03] MEDS: SENNA 176 MG/5 ML ORAL SOL NG SCH (20:18)
[2021-07-03] MEDS ORDERED: ARGATROBAN 250 MG in SODIUM CHLORIDE 0.9% 247.5 ML IV PRN (20:30)
[2021-07-03] MEDS ORDERED: ARGATROBAN/NACL 50 MG/50 ML 50 ML IV PRN (20:30)
[2021-07-04] MEDS ORDERED: ARGATROBAN/NACL 50 MG/50 ML 50 ML IV PRN (00:23)
[2021-07-04] MEDS: INSULIN LISPRO 100 UNITS/ML, PEN SQ-INSULIN SCH ×4 (03:07→20:47)
[2021-07-04 03:14] LABS: BASOPHILS % (AUTO) 0 % (0-1); EOSINOPHILS % (AUTO) 0 % (1-7); LYMPHOCYTES % (AUTO) 5 % (22-44); MEAN CORPUSCULAR HEMOGLOBIN 31.9 pg (27.5-34.5); MEAN CORPUSCULAR HGB CONC 33.7 g/dL (33.2-36.2); MEAN PLATELET VOLUME 8.3 fL (7.4-10.4); MONOCYTES % (AUTO) 3 % (2-9); NEUTROPHILS % (AUTO) 92 % (42-75); PLATELET COUNT 61 x10^3/uL (130-400); RED BLOOD COUNT 3.24 x10^6/uL (4.38-5.82)
[2021-07-04 03:26] LABS: ALBUMIN 2.4 g/dL (3.4-5.0); ANION GAP 7 mmol/L (5-15); CALCIUM 7.7 mg/dL (8.5-10.1); CHLORIDE 108 mmol/L (98-107)
[2021-07-04 03:28] LABS: CREATININE 1.78 mg/dL (0.7-1.3)
[2021-07-04] MEDS: PANTOPRAZOLE 40 MG IV IVPush SCH ×2 (06:05→17:37)
[2021-07-04] MEDS: ARTIFICIAL TEARS OINT 3.5 GM EACHEYE SCH ×4 (06:05→22:20)
[2021-07-04] MEDS: THIAMINE 100MG TABLET PO SCH (09:00)
[2021-07-04] MEDS: DOCUSATE 50 MG/5 ML, 10ML UDC PO SCH (09:00)
[2021-07-04] MEDS: INSULIN GLARGINE 100 UNITS/ML, PEN SQ-INSULIN SCH ×2 (09:00→20:46)
[2021-07-04] MEDS: LEVOTHYROXINE 100 MCG INJ IVPush SCH (09:11)
[2021-07-04] MEDS: ZINC SULFATE 220 MG CAPSULE PO SCH (09:12)
[2021-07-04] MEDS: CALCITRIOL 0.25 MCG CAPSULE PO SCH (09:12)
[2021-07-04] MEDS: ASCORBIC ACID 500 MG TABLET PO SCH ×2 (09:12→15:39)
[2021-07-04] MEDS: DEXAMETHASONE 4 MG/ML, 1ML IVPush SCH (09:12)
[2021-07-04] MEDS: CHOLECALCIFEROL 5,000u TAB PO SCH (09:13)
[2021-07-04] MEDS: SODIUM CHLORIDE FLUSH 10ML SYR IVF SCH ×2 (09:13→20:47)
[2021-07-04] MEDS: MEROPENEM 1 GM in SODIUM CHLORIDE 0.9% 100 ML IV SCH ×2 (09:31→22:17)
[2021-07-04] MEDS ORDERED: PROPOFOL 100 ML IV ONE (12:14)
[2021-07-04] MEDS ORDERED: PHARMACY MAY ADJ FOR RENAL FX MC SCH (13:30)
[2021-07-04] MEDS ORDERED: LIDOCAINE-MPF 1%, 2ML ENDO PRN (13:30)
[2021-07-04] MEDS ORDERED: MIDAZOLAM 1 MG/ML, 5ML ONE ×2 (15:51→16:39)
[2021-07-04] MEDS ORDERED: FENTANYL PF 100 MCG/2ML ONE (15:52)
[2021-07-04] MEDS ORDERED: VECURONIUM 10 MG ONE (16:25)
[2021-07-04] MEDS ORDERED: ETOMIDATE 20 MG/10 ML ONE (16:39)
[2021-07-04] MEDS: PROPOFOL 100 ML IV PRN (17:47)
[2021-07-04] MEDS: PHENYLEPHRINE 100 MG in SODIUM CHLORIDE 0.9% 240 ML IV PRN (22:18)
[2021-07-05] MEDS: PROPOFOL 100 ML IV PRN ×3 (00:59→17:18)
[2021-07-05] MEDS: INSULIN LISPRO 100 UNITS/ML, PEN SQ-INSULIN SCH ×4 (03:00→21:39)
[2021-07-05] MEDS: ARTIFICIAL TEARS OINT 3.5 GM EACHEYE SCH ×3 (04:33→17:17)
[2021-07-05 04:56] LABS: BASOPHILS % (AUTO) 0 % (0-1); EOSINOPHILS % (AUTO) 0 % (1-7); LYMPHOCYTES % (AUTO) 6 % (22-44); MEAN CORPUSCULAR HEMOGLOBIN 31.4 pg (27.5-34.5); MEAN CORPUSCULAR HGB CONC 33.4 g/dL (33.2-36.2); MONOCYTES % (AUTO) 4 % (2-9); NEUTROPHILS % (AUTO) 90 % (42-75); PLATELET COUNT 91 x10^3/uL (130-400); RED BLOOD COUNT 3.34 x10^6/uL (4.38-5.82); RED CELL DISTRIBUTION WIDTH 13.8 % (9.4-14.8)
[2021-07-05 05:04] LABS: ALANINE AMINOTRANSFERASE 34 U/L (12-78); ALBUMIN 2.1 g/dL (3.4-5.0); CALCIUM 7.2 mg/dL (8.5-10.1)
[2021-07-05 05:06] LABS: ALKALINE PHOSPHATASE 411 U/L (45-117); BILIRUBIN,TOTAL 0.8 mg/dL (0.2-1.0); CREATININE 1.54 mg/dL (0.7-1.3); TOTAL PROTEIN 5.4 g/dL (6.4-8.2)
[2021-07-05 05:12] LABS: ANION GAP 5 mmol/L (5-15); CHLORIDE 115 mmol/L (98-107)
[2021-07-05] MEDS ORDERED: CALCIUM GLUCONATE 9.2 MEQ in SODIUM CHLORIDE 0.9% 100 ML IV ONE (06:00)
[2021-07-05] MEDS: PANTOPRAZOLE 40 MG IV IVPush SCH ×2 (06:06→17:17)
[2021-07-05] MEDS: INSULIN GLARGINE 100 UNITS/ML, PEN SQ-INSULIN SCH ×2 (08:00→21:39)
[2021-07-05] MEDS ORDERED: MAGNESIUM SULFATE PMX 2GM/50ML 50 ML IVPB ONE (08:30)
[2021-07-05] MEDS ORDERED: POTASSIUM CHLORIDE 20 MEQ PACKET NG ONE (08:30)
[2021-07-05] MEDS: LEVOTHYROXINE 100 MCG INJ IVPush SCH (08:55)
[2021-07-05] MEDS: CALCITRIOL 0.25 MCG CAPSULE PO SCH (08:55)
[2021-07-05] MEDS: ASCORBIC ACID 500 MG TABLET PO SCH ×2 (08:55→17:17)
[2021-07-05] MEDS: SODIUM CHLORIDE FLUSH 10ML SYR IVF SCH ×2 (08:55→21:39)
[2021-07-05] MEDS: THIAMINE 100MG TABLET PO SCH (08:56)
[2021-07-05] MEDS: ZINC SULFATE 220 MG CAPSULE PO SCH (08:56)
[2021-07-05] MEDS: CHOLECALCIFEROL 5,000u TAB PO SCH (08:56)
[2021-07-05] MEDS: DOCUSATE 50 MG/5 ML, 10ML UDC PO SCH (08:57)
[2021-07-05] MEDS: MEROPENEM 1 GM in SODIUM CHLORIDE 0.9% 100 ML IV SCH ×2 (09:52→17:19)
[2021-07-05 11:12] LABS: D-DIMER (DIC) 13.54 ug/mlFEU (0.00-0.52)
[2021-07-05] MEDS ORDERED: MIDODRINE 5 MG TABLET PO SCH (14:00)
[2021-07-05] MEDS: PHENYLEPHRINE 100 MG in SODIUM CHLORIDE 0.9% 240 ML IV PRN (21:42)
[2021-07-06] MEDS: PROPOFOL 100 ML IV PRN ×2 (01:39→06:02)
[2021-07-06] MEDS: MEROPENEM 1 GM in SODIUM CHLORIDE 0.9% 100 ML IV SCH ×3 (01:39→18:14)
[2021-07-06] MEDS: ARTIFICIAL TEARS OINT 3.5 GM EACHEYE SCH ×5 (01:42→23:14)
[2021-07-06] MEDS: INSULIN LISPRO 100 UNITS/ML, PEN SQ-INSULIN SCH ×4 (03:00→20:59)
[2021-07-06 04:20] LABS: BASOPHILS % (AUTO) 0 % (0-1); EOSINOPHILS % (AUTO) 0 % (1-7); LYMPHOCYTES % (AUTO) 5 % (22-44); MEAN CORPUSCULAR HEMOGLOBIN 31.5 pg (27.5-34.5); MEAN CORPUSCULAR HGB CONC 33.3 g/dL (33.2-36.2); MEAN PLATELET VOLUME 7.8 fL (7.4-10.4); MONOCYTES % (AUTO) 5 % (2-9); NEUTROPHILS % (AUTO) 90 % (42-75); PLATELET COUNT 77 x10^3/uL (130-400); RED CELL DISTRIBUTION WIDTH 13.7 % (9.4-14.8)
[2021-07-06 04:27] LABS: CALCIUM 7.4 mg/dL (8.5-10.1); CREATININE 1.49 mg/dL (0.7-1.3)
[2021-07-06 05:17] LABS: ANION GAP 5 mmol/L (5-15); CHLORIDE 119 mmol/L (98-107)
[2021-07-06] MEDS: PANTOPRAZOLE 40 MG IV IVPush SCH ×2 (06:01→20:59)
[2021-07-06] MEDS: SODIUM CHLORIDE FLUSH 10ML SYR IVF SCH ×2 (10:29→20:59)
[2021-07-06] MEDS: CHOLECALCIFEROL 5,000u TAB PO SCH (10:40)
[2021-07-06] MEDS: THIAMINE 100MG TABLET PO SCH (10:40)
[2021-07-06] MEDS: ZINC SULFATE 220 MG CAPSULE PO SCH (10:41)
[2021-07-06] MEDS: ASCORBIC ACID 500 MG TABLET PO SCH ×2 (10:41→16:31)
[2021-07-06] MEDS: ENOXAPARIN 60 MG/0.6 ML SQ SCH (10:42)
[2021-07-06] MEDS: INSULIN GLARGINE 100 UNITS/ML, PEN SQ-INSULIN SCH ×2 (10:55→21:01)
[2021-07-06] MEDS: DOCUSATE 50 MG/5 ML, 10ML UDC PO SCH (11:36)
[2021-07-06] MEDS: LEVOTHYROXINE 100 MCG INJ IVPush SCH (11:36)
[2021-07-06 11:54] LABS: BILIRUBIN, DIRECT 0.6 mg/dL (0.1-0.2)
[2021-07-06 11:57] LABS: BILIRUBIN,INDIRECT 0.5 mg/dL (0.0-2.0); BILIRUBIN,TOTAL 1.1 mg/dL (0.2-1.0)
[2021-07-06] MEDS: CALCITRIOL 0.25 MCG CAPSULE PO SCH (12:06)
[2021-07-07] MEDS: MEROPENEM 1 GM in SODIUM CHLORIDE 0.9% 100 ML IV SCH ×3 (02:12→17:06)
[2021-07-07 03:45] LABS: ANION GAP 3 mmol/L (5-15); CALCIUM 7.5 mg/dL (8.5-10.1); CHLORIDE 123 mmol/L (98-107); CREATININE 1.39 mg/dL (0.7-1.3); TRIGLYCERIDES 106 mg/dL (50-200)
[2021-07-07] MEDS: INSULIN LISPRO 100 UNITS/ML, PEN SQ-INSULIN SCH ×4 (03:50→21:57)
[2021-07-07 04:09] LABS: BASOPHILS % (AUTO) 0 % (0-1); EOSINOPHILS % (AUTO) 1 % (1-7); LYMPHOCYTES % (AUTO) 6 % (22-44); MEAN CORPUSCULAR HEMOGLOBIN 30.9 pg (27.5-34.5); MEAN CORPUSCULAR HGB CONC 32.9 g/dL (33.2-36.2); MEAN PLATELET VOLUME 8.1 fL (7.4-10.4); MONOCYTES % (AUTO) 0 % (2-9); NEUTROPHILS % (AUTO) 93 % (42-75); PLATELET COUNT 77 x10^3/uL (130-400); RED BLOOD COUNT 3.15 x10^6/uL (4.38-5.82)
[2021-07-07] MEDS: ARTIFICIAL TEARS OINT 3.5 GM EACHEYE SCH ×4 (04:20→23:26)
[2021-07-07] MEDS ORDERED: MAGNESIUM SULFATE PMX 2GM/50ML 50 ML IV ONE (06:30)
[2021-07-07] MEDS ORDERED: POTASSIUM CHLORIDE 10% 20 MEQ/15 ML UDC PO ONE (06:30)
[2021-07-07] MEDS ORDERED: POTASSIUM CHLORIDE 20 MEQ PACKET ONE (06:34)
[2021-07-07] MEDS: DOCUSATE 50 MG/5 ML, 10ML UDC PO SCH (08:17)
[2021-07-07] MEDS: SODIUM CHLORIDE FLUSH 10ML SYR IVF SCH ×2 (09:00→21:58)
[2021-07-07] MEDS: CHOLECALCIFEROL 5,000u TAB PO SCH (09:00)
[2021-07-07] MEDS: ASCORBIC ACID 500 MG TABLET PO SCH ×2 (09:45→17:06)
[2021-07-07] MEDS: MIDODRINE 5 MG TABLET PO SCH ×3 (09:45→21:58)
[2021-07-07] MEDS: CALCITRIOL 0.25 MCG CAPSULE PO SCH (09:45)
[2021-07-07] MEDS: LEVOTHYROXINE 100 MCG INJ IVPush SCH (09:45)
[2021-07-07] MEDS: THIAMINE 100MG TABLET PO SCH (09:45)
[2021-07-07] MEDS: ZINC SULFATE 220 MG CAPSULE PO SCH (09:45)
[2021-07-07] MEDS: ENOXAPARIN 60 MG/0.6 ML SQ SCH (09:46)
[2021-07-07] MEDS: PANTOPRAZOLE 40 MG IV IVPush SCH ×2 (09:46→21:58)
[2021-07-07] MEDS: INSULIN GLARGINE 100 UNITS/ML, PEN SQ-INSULIN SCH ×2 (09:50→21:57)
[2021-07-07] MEDS: PHENYLEPHRINE 100 MG in SODIUM CHLORIDE 0.9% 240 ML IV PRN (13:03)
[2021-07-07] MEDS: PROPOFOL 100 ML IV PRN (18:13)
[2021-07-07] MEDS ORDERED: TEMAZEPAM 15 MG CAPSULE PO PRN (21:00)
[2021-07-08] MEDS: MEROPENEM 1 GM in SODIUM CHLORIDE 0.9% 100 ML IV SCH ×3 (02:57→17:09)
[2021-07-08] MEDS: INSULIN LISPRO 100 UNITS/ML, PEN SQ-INSULIN SCH ×4 (03:11→21:45)
[2021-07-08 03:35] LABS: BASOPHILS % (AUTO) 0 % (0-1); EOSINOPHILS % (AUTO) 1 % (1-7); LYMPHOCYTES % (AUTO) 8 % (22-44); MEAN CORPUSCULAR HEMOGLOBIN 31.6 pg (27.5-34.5); MEAN CORPUSCULAR HGB CONC 33.3 g/dL (33.2-36.2); MEAN PLATELET VOLUME 8.4 fL (7.4-10.4); MONOCYTES % (AUTO) 4 % (2-9); NEUTROPHILS % (AUTO) 88 % (42-75); PLATELET COUNT 84 x10^3/uL (130-400); RED BLOOD COUNT 3.07 x10^6/uL (4.38-5.82); RED CELL DISTRIBUTION WIDTH 13.9 % (9.4-14.8)
[2021-07-08 03:43] LABS: ANION GAP 5 mmol/L (5-15); CALCIUM 7.4 mg/dL (8.5-10.1); CHLORIDE 124 mmol/L (98-107)
[2021-07-08 04:03] LABS: INTERNATIONAL NORMALIZED RATIO 1.09 (0.93-1.1); PROTHROMBIN TIME 11.6 Seconds (9.6-11.5)
[2021-07-08] MEDS: ARTIFICIAL TEARS OINT 3.5 GM EACHEYE SCH ×4 (06:10→22:55)
[2021-07-08] MEDS: DEXTROSE 5% 1,000 ML IV SCH ×2 (06:11→21:43)
[2021-07-08] MEDS: ZINC SULFATE 220 MG CAPSULE PO SCH (07:50)
[2021-07-08] MEDS: ASCORBIC ACID 500 MG TABLET PO SCH ×2 (07:50→17:05)
[2021-07-08] MEDS: PROPOFOL 100 ML IV PRN ×2 (07:50→17:36)
[2021-07-08] MEDS: CHOLECALCIFEROL 5,000u TAB PO SCH (07:50)
[2021-07-08] MEDS: THIAMINE 100MG TABLET PO SCH (07:50)
[2021-07-08] MEDS: MIDODRINE 5 MG TABLET PO SCH ×3 (07:51→21:43)
[2021-07-08] MEDS: PANTOPRAZOLE 40 MG IV IVPush SCH ×2 (07:51→21:43)
[2021-07-08] MEDS: CALCITRIOL 0.25 MCG CAPSULE PO SCH (07:52)
[2021-07-08] MEDS: LEVOTHYROXINE 100 MCG INJ IVPush SCH (07:52)
[2021-07-08] MEDS: SODIUM CHLORIDE FLUSH 10ML SYR IVF SCH ×2 (07:52→21:43)
[2021-07-08] MEDS: ENOXAPARIN 60 MG/0.6 ML SQ SCH (07:53)
[2021-07-08] MEDS: DOCUSATE 50 MG/5 ML, 10ML UDC PO SCH (07:53)
[2021-07-08] MEDS: INSULIN GLARGINE 100 UNITS/ML, PEN SQ-INSULIN SCH ×2 (09:54→21:45)
[2021-07-08] MEDS ORDERED: MORPHINE SULFATE 4 MG/ML, 1ML ONE (10:45)
[2021-07-08] MEDS ORDERED: MORPHINE SULFATE 4 MG/ML, 1ML IVPush PRN (11:00)
[2021-07-08] MEDS ORDERED: NOREPINEPHRINE 1 MG/ML, 4ML ONE ×2 (19:25)
[2021-07-08] MEDS ORDERED: DIPHENHYDRAMINE 50 MG/ML, 1ML IVPush ONE (22:30)
[2021-07-09] MEDS: MEROPENEM 1 GM in SODIUM CHLORIDE 0.9% 100 ML IV SCH ×3 (02:03→17:00)
[2021-07-09] MEDS: INSULIN LISPRO 100 UNITS/ML, PEN SQ-INSULIN SCH ×4 (03:30→21:58)
[2021-07-09 04:20] LABS: MEAN CORPUSCULAR HEMOGLOBIN 31.1 pg (27.5-34.5); MEAN PLATELET VOLUME 8.3 fL (7.4-10.4); PLATELET COUNT 95 x10^3/uL (130-400); RED BLOOD COUNT 3.02 x10^6/uL (4.38-5.82); RED CELL DISTRIBUTION WIDTH 14.2 % (9.4-14.8)
[2021-07-09 04:25] LABS: ANION GAP 5 mmol/L (5-15); CALCIUM 7.6 mg/dL (8.5-10.1); CHLORIDE 122 mmol/L (98-107); CREATININE 1.28 mg/dL (0.7-1.3)
[2021-07-09 04:43] LABS: ANISOCYTOSIS 1+; BAND#(MANUAL) 1.01 x10^3/uL; BANDS%(MANUAL) 8 % (0-7); EOS#(MANUAL) 0.38 x10^3/uL (0.0-0.4); EOS% (MANUAL) 3 % (1-7); LYMPH#(MANUAL) 0.63 x10^3/uL (1-3.4); LYMPHS% (MANUAL) 5 % (22-44); MONOS#(MANUAL) 0.25 x10^3/uL (0.3-2.7); MONOS% (MANUAL) 2 % (2-9); SEG#(MANUAL) 10.33 x10^3/uL (1.8-6.8); SEGS% (MANUAL) 82 % (42-75)
[2021-07-09 04:44] LABS: <PLATELET ESTIMATE> DECREASED; PMNS WITH VACUOLES 1+; TOXIC GRAN 1+
[2021-07-09 04:46] LABS: <PLT MORPHOLOGY> NORMAL PLT MORPH
[2021-07-09] MEDS: ARTIFICIAL TEARS OINT 3.5 GM EACHEYE SCH ×3 (05:44→17:00)
[2021-07-09] MEDS: INSULIN GLARGINE 100 UNITS/ML, PEN SQ-INSULIN SCH ×2 (07:38→21:58)
[2021-07-09] MEDS: PROPOFOL 100 ML IV PRN ×2 (07:40→17:00)
[2021-07-09] MEDS ORDERED: LORATADINE 10 MG TABLET PO SCH (09:00)
[2021-07-09] MEDS: ENOXAPARIN 60 MG/0.6 ML SQ SCH (09:50)
[2021-07-09] MEDS: LEVOTHYROXINE 100 MCG INJ IVPush SCH (09:51)
[2021-07-09] MEDS: PANTOPRAZOLE 40 MG IV IVPush SCH ×2 (09:51→21:57)
[2021-07-09] MEDS: SODIUM CHLORIDE FLUSH 10ML SYR IVF SCH ×2 (09:51→21:57)
[2021-07-09] MEDS: DEXTROSE 5% 1,000 ML IV SCH (09:52)
[2021-07-09] MEDS: DOCUSATE 50 MG/5 ML, 10ML UDC PO SCH (09:52)
[2021-07-09] MEDS: CALCITRIOL 0.25 MCG CAPSULE PO SCH (09:52)
[2021-07-09] MEDS: MIDODRINE 5 MG TABLET PO SCH ×3 (09:52→21:57)
[2021-07-09] MEDS ORDERED: HYDROcodone/APAP 5/325 TABLET PO PRN (11:30)
[2021-07-09] MEDS ORDERED: PHENYLEPHRINE 100 MG in SODIUM CHLORIDE 0.9% 240 ML IV PRN (11:30)
[2021-07-09] MEDS: CETIRIZINE 1 MG/ML ORAL SOL PO SCH (11:40)
[2021-07-10] MEDS: ARTIFICIAL TEARS OINT 3.5 GM EACHEYE SCH ×3 (00:11→12:13)
[2021-07-10] MEDS: DEXTROSE 5% 1,000 ML IV SCH ×2 (00:13→12:14)
[2021-07-10] MEDS: MEROPENEM 1 GM in SODIUM CHLORIDE 0.9% 100 ML IV SCH (01:51)
[2021-07-10] MEDS: INSULIN LISPRO 100 UNITS/ML, PEN SQ-INSULIN SCH ×2 (02:21→12:11)
[2021-07-10 04:54] LABS: BASOPHILS % (AUTO) 1 % (0-1); EOSINOPHILS % (AUTO) 1 % (1-7); LYMPHOCYTES % (AUTO) 10 % (22-44); MEAN CORPUSCULAR HEMOGLOBIN 31.6 pg (27.5-34.5); MEAN CORPUSCULAR HGB CONC 33.5 g/dL (33.2-36.2); MONOCYTES % (AUTO) 4 % (2-9); NEUTROPHILS % (AUTO) 85 % (42-75); PLATELET COUNT 82 x10^3/uL (130-400); RED BLOOD COUNT 3.09 x10^6/uL (4.38-5.82); RED CELL DISTRIBUTION WIDTH 14.2 % (9.4-14.8)
[2021-07-10 05:02] LABS: ALANINE AMINOTRANSFERASE 121 U/L (12-78); ALBUMIN 1.6 g/dL (3.4-5.0); ANION GAP 4 mmol/L (5-15); CALCIUM 7.6 mg/dL (8.5-10.1); CHLORIDE 119 mmol/L (98-107); CREATININE 1.16 mg/dL (0.7-1.3); TRIGLYCERIDES 137 mg/dL (50-200)
[2021-07-10 05:17] LABS: ALKALINE PHOSPHATASE 961 U/L (45-117); BILIRUBIN,TOTAL 0.7 mg/dL (0.2-1.0); TOTAL PROTEIN 5.4 g/dL (6.4-8.2)
[2021-07-10] MEDS: PROPOFOL 100 ML IV PRN ×2 (06:33→08:15)
[2021-07-10] MEDS: SODIUM CHLORIDE FLUSH 10ML SYR IVF SCH (08:15)
[2021-07-10] MEDS: DOCUSATE 50 MG/5 ML, 10ML UDC PO SCH (08:16)
[2021-07-10] MEDS: LEVOTHYROXINE 100 MCG INJ IVPush SCH (08:16)
[2021-07-10] MEDS: ENOXAPARIN 60 MG/0.6 ML SQ SCH (08:16)
[2021-07-10] MEDS: PANTOPRAZOLE 40 MG IV IVPush SCH (08:17)
[2021-07-10] MEDS: MIDODRINE 5 MG TABLET PO SCH (08:17)
[2021-07-10] MEDS: CALCITRIOL 0.25 MCG CAPSULE PO SCH (08:18)
[2021-07-10] MEDS: CETIRIZINE 1 MG/ML ORAL SOL PO SCH (08:18)
[2021-07-10] MEDS: INSULIN GLARGINE 100 UNITS/ML, PEN SQ-INSULIN SCH (12:11)
[2021-07-10] MEDS ORDERED: MAGNESIUM SULFATE PMX 2GM/50ML 50 ML ONE (13:25)
[2021-07-10] MEDS ORDERED: POTASSIUM CHLORIDE 20 MEQ PACKET ONE (13:26)
[2021-07-10] MEDS ORDERED: POTASSIUM CHLORIDE 20 MEQ PACKET PO ONE (13:30)
[2021-07-10] MEDS ORDERED: MAGNESIUM SULFATE PMX 2GM/50ML 50 ML IV ONE (13:30)
[2021-07-10] MEDS ORDERED: CALC0.25 PO (14:30)
[2021-07-10] MEDS ORDERED: ACET650S12 PR (14:30)
[2021-07-10] MEDS ORDERED: INSU100I13 SQ-INSULIN (14:30)
[2021-07-10] MEDS ORDERED: BISA10SU4 PR (14:30)
[2021-07-10] MEDS ORDERED: CETI-237 PO (14:30)
[2021-07-10] MEDS ORDERED: DOCU50LI26 PO (14:30)
[2021-07-10] MEDS ORDERED: LIDO10VI34 ENDO (14:30)
[2021-07-10] MEDS ORDERED: LEVO100V8 IVPush (14:30)
[2021-07-10] MEDS ORDERED: PANT40VI IVPush (14:30)
[2021-07-10] MEDS ORDERED: [UNRECOGNIZED DRUG - CODE] IV (14:30)
[2021-07-10] MEDS ORDERED: ENOX60DI3 SQ (14:30)
[2021-07-10] MEDS ORDERED: HYDR-2214 PO (14:30)
[2021-07-10] MEDS ORDERED: LACT20SO13 PO (14:30)
[2021-07-10] MEDS ORDERED: MIDO5TAB9 PO (14:30)
[2021-07-10] MEDS ORDERED: INSU100I11 SQ-INSULIN (14:30)
[2021-07-10] MEDS ORDERED: [UNRECOGNIZED DRUG - CODE] IV (14:30)
== END 2021-07-10 15:50 | DRG 4 ==
LOC: ED 21:39 → EDIP 22:26 → CCU 06-26 01:30 → ICU 07-06 09:08
PROVIDERS: ADMIT Family Medicine; ATTEND Internal Medicine
PROC: 5A1955Z Respiratory Ventilation, Greater than 96 Consecutive Hours (ICD-10-PCS; 2021-06-24)
PROC: 0BH17EZ Insertion of Endotracheal Airway into Trachea, Via Natural or Artificial Opening (ICD-10-PCS; 2021-06-24)
PROC: 5A1D70Z Performance of Urinary Filtration, Intermittent, Less than 6 Hours Per Day (ICD-10-PCS; 2021-06-25)
PROC: 5A1D70Z Performance of Urinary Filtration, Intermittent, Less than 6 Hours Per Day (ICD-10-PCS; 2021-06-26)
PROC: 02HV33Z Insertion of Infusion Device into Superior Vena Cava, Percutaneous Approach (ICD-10-PCS; principal; 2021-06-27)
PROC: B548ZZA Ultrasonography of Superior Vena Cava, Guidance (ICD-10-PCS; 2021-06-27)
PROC: 5A1D70Z Performance of Urinary Filtration, Intermittent, Less than 6 Hours Per Day (ICD-10-PCS; 2021-06-27)
PROC: 5A1D70Z Performance of Urinary Filtration, Intermittent, Less than 6 Hours Per Day (ICD-10-PCS; 2021-06-29)
PROC: 5A1D70Z Performance of Urinary Filtration, Intermittent, Less than 6 Hours Per Day (ICD-10-PCS; 2021-07-01)
PROC: 5A0935A Assistance with Respiratory Ventilation, Less than 24 Consecutive Hours, High Flow/Velocity Cannula (ICD-10-PCS; 2021-07-02)
PROC: 5A09357 Assistance with Respiratory Ventilation, Less than 24 Consecutive Hours, Continuous Positive Airway Pressure (ICD-10-PCS; 2021-07-03)
PROC: 5A0935A Assistance with Respiratory Ventilation, Less than 24 Consecutive Hours, High Flow/Velocity Cannula (ICD-10-PCS; 2021-07-03)
PROC: 5A1D70Z Performance of Urinary Filtration, Intermittent, Less than 6 Hours Per Day (ICD-10-PCS; 2021-07-03)
PROC: 5A1955Z Respiratory Ventilation, Greater than 96 Consecutive Hours (ICD-10-PCS; 2021-07-04)
PROC: 0B113F4 Bypass Trachea to Cutaneous with Tracheostomy Device, Percutaneous Approach (ICD-10-PCS; 2021-07-04)
PROC: 0B918ZZ Drainage of Trachea, Via Natural or Artificial Opening Endoscopic (ICD-10-PCS; 2021-07-04)
DX: A41.89 Other specified sepsis (principal); G92 Toxic encephalopathy; J12.82 Pneumonia due to coronavirus disease 2019; J96.01 Acute respiratory failure with hypoxia; K85.90 Acute pancreatitis without necrosis or infection, unspecified; N17.0 Acute kidney failure with tubular necrosis; R65.21 Severe sepsis with septic shock; U07.1 COVID-19; E46 Unspecified protein-calorie malnutrition; E72.20 Disorder of urea cycle metabolism, unspecified; E87.0 Hyperosmolality and hypernatremia; E87.1 Hypo-osmolality and hyponatremia; E87.4 Mixed disorder of acid-base balance; J81.1 Chronic pulmonary edema; N25.81 Secondary hyperparathyroidism of renal origin; Z99.11 Dependence on respirator [ventilator] status; D63.8 Anemia in other chronic diseases classified elsewhere; D69.6 Thrombocytopenia, unspecified; E05.00 Thyrotoxicosis with diffuse goiter without thyrotoxic crisis or storm; E11.21 Type 2 diabetes mellitus with diabetic nephropathy; E11.649 Type 2 diabetes mellitus with hypoglycemia without coma; E11.65 Type 2 diabetes mellitus with hyperglycemia; E78.1 Pure hyperglyceridemia; E78.5 Hyperlipidemia, unspecified; E83.39 Other disorders of phosphorus metabolism; E83.42 Hypomagnesemia; E83.51 Hypocalcemia; E87.5 Hyperkalemia; E87.6 Hypokalemia; F32.9 Major depressive disorder, single episode, unspecified; G89.29 Other chronic pain; I10 Essential (primary) hypertension; T38.3X5A Adverse effect of insulin and oral hypoglycemic [antidiabetic] drugs, initial encounter; Z93.0 Tracheostomy status; Z99.2 Dependence on renal dialysis; Z79.84 Long term (current) use of oral hypoglycemic drugs; Y92.89 Other specified places as the place of occurrence of the external cause; Z79.899 Other long term (current) drug therapy
CPT/HCPCS: 31622; 36415; 36556; 36573; 36580; 36600; 70450; 71045; 74018; 74176; 75984; 76700; 80048; 80053; 80069; 80202; 80299; 80329; 82010; 82140; 82247; 82248; 82306; 82330; 82533; 82550; 82693; 82803; 82962; 83010; 83036; 83605; 83615; 83690; 83735; 83970; 84100; 84439; 84443; 84478; 84484; 84550; 84600; 85025; 85049; 85379; 85384; 85520; 85610; 85730; 86022; 86140; 86706; 87040; 87070; 87081; 87205; 87340; 90935; 93005; 93306; 94002; 94003; 94150; 94660; 96374; 96375; G0378; J0610; J0692; J1100; J1644; J1650; J2020; J2185; J2250; J2543; J2704; J3010; J3370; J7070; P9047; U0005; C1751; C9113; G0480; J0883; J1200; J1815; J2270; J2370; J3475; J7040; J7050; U0003